=== PATIENT | female | born 1975 | race Caucasian/White ===

== ENCOUNTER 2019-04-26 00:40 | Emergency (ER) | payer MEDICAID ==
[~2019-04-26] VITALS: Ht 165.1 cm; Wt 83.0 kg
[2019-04-26 02:30] VITALS: BP 100/60
== END 2019-04-26 02:30 | disposition home or self-care (01) ==
LOC: ED 00:40
DX: J11.1 Influenza due to unidentified influenza virus with other respiratory manifestations (principal); J98.01 Acute bronchospasm; F17.210 Nicotine dependence, cigarettes, uncomplicated; Z71.6 Tobacco abuse counseling
CPT/HCPCS: 87804; 99406; J7613

== ENCOUNTER 2019-07-08 01:15 | Emergency (ER) | payer MEDICAID ==
[~2019-07-08] VITALS: Ht 160 cm; Wt 83.5 kg
[2019-07-08 01:18] VITALS: BP 150/86; Ht 160 cm; Wt 83.5 kg
== END 2019-07-08 03:13 | disposition home or self-care (01) ==
LOC: ED 01:15
DX: J11.1 Influenza due to unidentified influenza virus with other respiratory manifestations (principal); F17.210 Nicotine dependence, cigarettes, uncomplicated; I10 Essential (primary) hypertension; Z98.890 Other specified postprocedural states
CPT/HCPCS: 87804; J1885

== ENCOUNTER 2020-05-19 22:37 | Emergency (ER) | payer MEDICAID, SELFPAY ==
[~2020-05-19] VITALS: Ht 165.1 cm; Wt 83.9 kg
[2020-05-19 22:42] VITALS: Ht 165.1 cm; Wt 83.9 kg
[2020-05-20 01:58] VITALS: BP 153/86
== END 2020-05-20 01:58 | disposition home or self-care (01) ==
LOC: ED 22:37
DX: U07.1 COVID-19 (principal); I10 Essential (primary) hypertension; F10.129 Alcohol abuse with intoxication, unspecified
CPT/HCPCS: 87804; U0003

== ENCOUNTER 2020-05-21 22:07 | Emergency (ER) | payer MEDICAID, SELFPAY ==
[~2020-05-21] VITALS: Ht 165.1 cm; Wt 83.9 kg
[2020-05-21 23:11] VITALS: Ht 165.1 cm; Wt 83.9 kg
[2020-05-22 00:02] VITALS: BP 145/91
== END 2020-05-22 00:02 | disposition home or self-care (01) ==
LOC: ED 22:07
DX: U07.1 COVID-19 (principal); B34.9 Viral infection, unspecified; I10 Essential (primary) hypertension

== ENCOUNTER 2020-06-23 01:52 | Emergency (ER) | payer MEDICAID, SELFPAY ==
[~2020-06-23] VITALS: Ht 165.1 cm; Wt 81.6 kg
[2020-06-23 01:54] VITALS: Ht 165.1 cm; Wt 81.6 kg
[2020-06-23 03:05] VITALS: BP 140/57
== END 2020-06-23 03:09 | disposition home or self-care (01) ==
LOC: ED 01:52
DX: J02.9 Acute pharyngitis, unspecified (principal); R51.9 Headache, unspecified; I10 Essential (primary) hypertension